=== PATIENT | female | born 1965 | race Caucasian/White ===

== ENCOUNTER 2023-05-19 17:05 | Emergency (ER) | payer OTHER ==
[~2023-05-19] VITALS: Ht 165.1 cm; Wt 68.0 kg
[2023-05-19 17:15] VITALS: BP 140/90; PULSE 92; RESP 20; TEMP 98.1; O2SAT 98
== END 2023-05-19 18:22 | disposition home or self-care (01) ==
LOC: MED 17:05
DX: R42 Dizziness and giddiness (principal); I10 Essential (primary) hypertension
CPT/HCPCS: 93005; 99283